=== PATIENT | female | born 1950 | race Caucasian/White ===

== ENCOUNTER 2024-03-17 11:00 | Day surgery (SDC) | payer MEDICARE, BC ==
[2024-03-17] MEDS ORDERED: Ondansetron PF 4 MG/2 ML Vial IVP PRN (11:12)
[2024-03-17 11:23] VITALS: TEMP 98.3
[2024-03-17] MEDS: Sodium Chloride 0.9% 1,000 ML IV SCH (11:24)
[2024-03-17] MEDS: Multivitamins, Adult 10 ML, Thiamine HCl 100 MG in Sodium Chloride 0.9% 1,000 ML IV SCH (11:53)
[2024-03-17] MEDS: Ketorolac Tromethamine 30 MG (1 mL) VIAL IVP SCH (12:23)
[2024-03-17 13:26] VITALS: BP 161/74
== END 2024-03-17 13:45 | disposition home or self-care (01) ==
LOC: ONC/OP 11:00
PROVIDERS: ATTEND Surgery
DX: E86.0 Dehydration (principal)
CPT/HCPCS: 96360; 96361; 96375; J1885; J3411; J7050